=== PATIENT | female | born 1970 | race Caucasian/White ===

== ENCOUNTER 2025-04-19 16:31 | Inpatient (IN) | payer OTHER ==
[~2025-04-19] VITALS: Ht 167.6 cm; Wt 51.8 kg
[2025-04-19] MEDS: LORazepam 2 MG/ML VIAL IM ONE (18:25)
[2025-04-19] MEDS: DiphenhydrAMINE HCL 50 MG/ML VIAL IM ONE (18:26)
[2025-04-19] MEDS: haloperidoL LACTATE 5 MG/ML VIAL IM ONE (18:26)
[2025-04-19] MEDS ORDERED: CLOP75TA83 PO (18:52)
[2025-04-19] MEDS: LORazepam 2 MG/ML VIAL IVP ONE (19:17)
[2025-04-19 19:26] LABS: COVID AG,FIA SOURCE NASAL SWAB
[2025-04-19 19:45] LABS: SARS-COV2 (COVID) ANTIGEN,FIA Negative (Negative)
[2025-04-19] MEDS: DiphenhydrAMINE HCL 50 MG/ML VIAL IVP ONE (19:46)
[2025-04-19] MEDS: haloperidoL LACTATE 5 MG/ML VIAL IVP ONE (19:46)
[2025-04-19 20:21] LABS: BASOPHILS % (AUTO) 0.9 % (0.0-2.0); EOSINOPHILS % (AUTO) 0.3 % (1.0-6.0); HEMATOCRIT 37.7 % (36-46); HEMOGLOBIN 12.6 g/dL (12.0-16.0); LYMPHOCYTES # (AUTO) 1.1 K/uL (1.0-4.8); LYMPHOCYTES % (AUTO) 16.6 % (22.0-44.0); MEAN CORPUSCULAR HEMOGLOBIN 31.9 pg (26.0-34.0); MEAN CORPUSCULAR HGB CONC 33.4 G/dL (31.0-37.0); MEAN CORPUSCULAR VOLUME 96 fL (80-100); MONOCYTES # (AUTO) 0.8 K/uL (0.1-1.0); MONOCYTES % (AUTO) 11.8 % (2.0-9.0); NEUTROPHILS # (AUTO) 4.9 K/uL (1.8-7.7); NEUTROPHILS % (AUTO) 70.4 % (40.0-70.0); PLATELET COUNT (AUTO) 319 K/uL (150-450); RED BLOOD CELL COUNT(AUTO) 3.95 MIL/uL (4.00-5.20); RED CELL DISTRIBUTION WIDTH 12.9 % (11.5-14.5); WHITE BLOOD COUNT (AUTO) 6.9 K/uL (4.5-11.0)
[2025-04-19 20:44] LABS: ANION GAP 5 mmol/L (8-16); CALCIUM, TOTAL 8.2 mg/dL (8.8-10.5); CARBON DIOXIDE 28 mmol/L (22-29); CHLORIDE 103 mmol/L (98-107); CREATININE 0.76 mg/dL (0.60-1.30); GLOMERULAR FILTR. RATE CALC > 60 mL/min (>60); GLUCOSE,RANDOM 98 mg/dL (70-110); POTASSIUM 3.6 mmol/L (3.5-5.1); SODIUM SERUM 135 mmol/L (136-145); UREA NITROGEN, BLOOD 23 mg/dL (7-18)
[2025-04-19 20:52] LABS: TROPONIN I-HIGH SENSITIVITY 9 ng/L (<51)
[2025-04-20] MEDS ORDERED: LEVO75TA10 PO (01:15)
[2025-04-20] MEDS ORDERED: METH20TA PO (01:18)
[2025-04-20] MEDS ORDERED: LORA0.5T20 PO (01:50)
[2025-04-20] MEDS ORDERED: BREX1TAB PO (01:50)
[2025-04-20] MEDS ORDERED: QUET50TA15 PO (01:50)
[2025-04-20] MEDS ORDERED: ALPR2TAB97 PO (01:50)
[2025-04-20 03:07] LABS: APPEARANCE,URINE CLEAR (CLEAR); BILIRUBIN,URINE NEGATIVE (NEGATIVE); COLOR,URINE YELLOW (YELLOW); GLUCOSE, URINE (UA) NEGATIVE (NEGATIVE); KETONES,URINE NEGATIVE (NEGATIVE); LEUKOCYTE ESTERASE ,URINE SMALL (NEGATIVE); NITRATE,URINE POSITIVE (NEGATIVE); OCCULT BLOOD,URINE NEGATIVE (NEGATIVE); PROTEIN,URINE NEGATIVE (NEGATIVE); SPECIFIC GRAVITIY, URINE 1.019 (1.003-1.030); UROBILINOGEN,URINE <=1.0 mg/dL (<=1.0)
[2025-04-20 03:13] LABS: ALCOHOL, URINE DRUG SCREEN NEGATIVE (NEGATIVE); AMPHET/METH SCREEN,URINE NEGATIVE (NEGATIVE); BARBITURATE SCREEN, URINE NEGATIVE (NEGATIVE); BENZODIAZEPINES SCREEN,URINE POSITIVE (NEGATIVE); CANNABINOID SCREEN,URINE NEGATIVE (NEGATIVE); COCAINE SCREEN,URINE NEGATIVE (NEGATIVE); METHADONE SCREEN, URINE NEGATIVE (NEGATIVE); OPIATE SCREEN,URINE NEGATIVE (NEGATIVE); PHENCYCLIDINE SCREEN,URINE NEGATIVE (NEGATIVE)
[2025-04-20 03:21] LABS: RBC,URINE None Seen /HPF (0-2)
[2025-04-20 03:22] LABS: BACTERIA,URINE Many /HPF (None Seen); SQUAMOUS EPITHELIAL CELL,UR Rare /LPF (None Seen)
[2025-04-20] MEDS ORDERED: ONDANSETRON HCL 4 MG/2 ML VIAL IVP PRN (04:45)
[2025-04-20] MEDS: LevETIRAcetam 500 MG in DEXTROSE 5%-WATER 100 ML IV ONE (05:32)
[2025-04-20] MEDS: CefTRIAXone 1 GM/DEXTROSE 50 ML IV SCH (05:32)
[2025-04-20] MEDS: RINGERS SOLUTION,LACTATED 1,000 ML IV ONE (05:42)
[2025-04-20] MEDS: ACETAMINOPHEN 325 MG TABLET PO PRN (07:09)
[2025-04-20] MEDS: HEPARIN SODIUM,PORCINE 5,000 UNITS/ML VIAL SQ SCH (07:17)
[2025-04-20] MEDS: DOCUSATE SODIUM 100 MG CAPSULE PO SCH (07:17)
[2025-04-20 09:53] VITALS: BP 119/73; PULSE 63; RESP 18; TEMP 98.2; O2SAT 98
[2025-04-20] MEDS ORDERED: GADOTERATE MEGLUMINE 10 MMOL/20 ML VIAL IVP ONE (10:42)
[2025-04-20] MEDS: TraMADol HCL 50 MG TABLET PO PRN (12:37)
[2025-04-20] MEDS: haloperidoL LACTATE 5 MG/ML VIAL IM PRN (13:15)
[2025-04-20] MEDS: LORazepam 2 MG/ML VIAL IVP PRN (13:19)
[2025-04-20 15:41] VITALS: BP 130/85; PULSE 68; RESP 18; TEMP 98.2; O2SAT 100
[2025-04-20 19:30] VITALS: BP 152/92; PULSE 64; RESP 20; TEMP 98.1; O2SAT 99
[2025-04-20] MEDS: ClonazePAM 1 MG TABLET PO SCH (19:50)
[2025-04-20] MEDS: QUEtiapine FUMARATE 100 MG TABLET PO SCH (19:50)
[2025-04-20] MEDS ORDERED: QUEtiapine FUMARATE 25 MG TABLET PO SCH (21:00)
[2025-04-20] MEDS: TraMADol HCL 50 MG TABLET PO ONE (21:17)
[2025-04-20] MEDS ORDERED: HydrOXYzine HCL 50 MG TABLET PO ONE (22:30)
[2025-04-21 01:00] VITALS: BP 145/70; PULSE 61; RESP 18; TEMP 97.9; O2SAT 98
[2025-04-21] MEDS ORDERED: SODIUM CHLORIDE 0.9% 500 ML IV ONE (04:44)
[2025-04-21 04:45] VITALS: BP 127/73; PULSE 61; RESP 18; TEMP 98.6; O2SAT 97
[2025-04-21 06:30] LABS: BASOPHILS % (AUTO) 0.5 % (0.0-2.0); EOSINOPHILS % (AUTO) 1.7 % (1.0-6.0); HEMATOCRIT 38.4 % (36-46); HEMOGLOBIN 13.1 g/dL (12.0-16.0); LYMPHOCYTES # (AUTO) 1.7 K/uL (1.0-4.8); LYMPHOCYTES % (AUTO) 31.3 % (22.0-44.0); MEAN CORPUSCULAR HEMOGLOBIN 32.4 pg (26.0-34.0); MEAN CORPUSCULAR HGB CONC 34.1 G/dL (31.0-37.0); MEAN CORPUSCULAR VOLUME 95 fL (80-100); MONOCYTES # (AUTO) 0.8 K/uL (0.1-1.0); MONOCYTES % (AUTO) 13.8 % (2.0-9.0); NEUTROPHILS % (AUTO) 52.7 % (40.0-70.0); PLATELET COUNT (AUTO) 337 K/uL (150-450); RED BLOOD CELL COUNT(AUTO) 4.04 MIL/uL (4.00-5.20); WHITE BLOOD COUNT (AUTO) 5.6 K/uL (4.5-11.0)
[2025-04-21 06:39] LABS: ANION GAP 5 mmol/L (8-16); CALCIUM, TOTAL 8.5 mg/dL (8.8-10.5); CARBON DIOXIDE 25 mmol/L (22-29); CHLORIDE 101 mmol/L (98-107); CREATININE 0.52 mg/dL (0.60-1.30); GLOMERULAR FILTR. RATE CALC > 60 mL/min (>60); GLUCOSE,RANDOM 110 mg/dL (70-110); POTASSIUM 3.7 mmol/L (3.5-5.1); SODIUM SERUM 131 mmol/L (136-145); UREA NITROGEN, BLOOD 10 mg/dL (7-18)
[2025-04-21 07:15] VITALS: BP 131/74; PULSE 63; RESP 19; TEMP 98.2; O2SAT 98
[2025-04-21] MEDS: ASPIRIN 81 MG CHEWABLE TABLET PO SCH (08:09)
[2025-04-21] MEDS: ATORVASTATIN CALCIUM 40 MG TABLET PO SCH (08:09)
[2025-04-21] MEDS ORDERED: LEVO50 PO (13:59)
[2025-04-21] MEDS ORDERED: ATOR20TA PO (13:59)
[2025-04-22] MEDS ORDERED: LEVOTHYROXINE SODIUM 50 MCG TABLET PO SCH (06:30)
== END 2025-04-21 16:55 | disposition home or self-care (01) | DRG 690 ==
LOC: EMS 16:31 → EDH 04-20 04:40 → 6S 04-20 09:29
PROVIDERS: ADMIT Internal Medicine; ATTEND Internal Medicine
PROC: 4A00X4Z Measurement of Central Nervous Electrical Activity, External Approach (ICD-10-PCS; principal; 2025-04-20)
DX: N39.0 Urinary tract infection, site not specified (principal); F23 Brief psychotic disorder; G47.00 Insomnia, unspecified; Z20.822 Contact with and (suspected) exposure to COVID-19; E03.9 Hypothyroidism, unspecified; E78.00 Pure hypercholesterolemia, unspecified; F41.0 Panic disorder [episodic paroxysmal anxiety]; F41.1 Generalized anxiety disorder; F11.90 Opioid use, unspecified, uncomplicated; F11.959 Opioid use, unspecified with opioid-induced psychotic disorder, unspecified; Z79.899 Other long term (current) drug therapy; Z86.73 Personal history of transient ischemic attack (TIA), and cerebral infarction without residual deficits; Z90.13 Acquired absence of bilateral breasts and nipples
CPT/HCPCS: 70450; 70553; 71045; 80048; 80307; 81001; 83735; 84443; 84484; 85025; 87077; 87086; 87186; 93005; 95816; 96372; 96374; 96375; 99291; G0480; J0696; J0712; J1200; J1630; J1644; J2060; J7040; J7060; J7120; 36415-L1; 36415-TC